=== PATIENT | male | born 1960 | race African-American/Black ===

== ENCOUNTER → 2016-05-09 | Emergency (ER) | payer MEDICARE, OTHER ==
[~2016-05-09] VITALS: Ht 175.3 cm; Wt 108.9 kg
[~2016-05-09] MED LIST: AZITHROMYCIN250 MG ORAL; HYDROCHLOROTH12.5 M2 ORAL; IBUPROFEN600 MG ORAL; JANUMET 50-5001 EACH ORAL; KEFLEX500 MG ORAL
[2016-05-09 23:40] VITALS: BP 130/81
--- NOTE | 2016-05-09 23:56 | Emergency Room Report ---
History of Present Illness General Chief Complaint: Lower Back Pain or Injury Source: Patient Present Illness HPI Is a 55-year-old male with history of chronic pain. He presents with chief complaint of lower back pain. He said that 2 days ago he slipped on a wet ramp and landed on his blood. Complaining of lower back pain. Denies any fever or chills. Pain is localized the lower lumbar area. No loss of consciousness. 10 out of 10. Out of his pain medication. Denies any other complaint. Allergies: Coded Allergies: No Known Allergies (Verified , 05/09/16) Patient History Past Medical History: see triage record, old chart reviewed Past Surgical History: other Pertinent Family History: none Social History: Reports: smoking Immunizations: other Reviewed Nursing Documentation: PMH: Agreed, PSxH: Agreed Nursing Documentation-PM Past Medical History: No History, Except For Hx Hypertension: Yes Hx Asthma: Yes Hx Diabetes: Yes Hx Cancer: No Hx Gastrointestinal Problems: No Hx Neurological Problems: No Review of Systems Eye: Denies: blurred vision, eye pain ENT: Denies: ear pain, nose congestion, throat swelling Respiratory: Denies: cough, shortness of breath Cardiovascular: Denies: chest pain, palpitations Gastrointestinal: Denies: abdominal pain, diarrhea, nausea, vomiting Musculoskeletal: Reports: back pain, Denies: joint pain Skin: Denies: rash Neurological: Denies: headache, numbness Endocrine: Denies: increased thirst, increased urine Hematologic/Lymphatic: Denies: easy bruising All Other Systems: negative except mentioned in HPI Physical Exam Vital Signs Date Time Temp Pulse Resp B/P Pulse Ox O2 Delivery O2 Flow Rate FiO2 05/09/16 23:36 97.5 73 16 122/80 99 Room Air vitals normal Sp02 EP Interpretation: reviewed, normal General Appearance: well appearing, no apparent distress, alert Head: normocephalic, atraumatic Eyes: bilateral eye EOMI, bilateral eye PERRL ENT: hearing grossly normal, normal pharynx Neck: full range of motion, supple, no meningismus Respiratory: chest non-tender, lungs clear, normal breath sounds Cardiovascular #1: regular rate, rhythm, no murmur Gastrointestinal: normal bowel sounds, non tender, no mass, no organomegaly, no bruit, non-distended Musculoskeletal: back normal - Tender to palpation of the lower lumbar area. No step-off. No evidence of any trauma., gait/station normal, normal range of motion Neurologic: alert, oriented x3 Psychiatric: mood/affect normal Skin: warm/dry Medical Decision Making Diagnostic Impression: Primary Impression: Low back pain Qualified Codes: M54.5 - Low back pain Additional Impression: Opioid dependence Qualified Codes: F11.20 - Opioid dependence, uncomplicated ER Course Is presents with lower back pain. X-rays unremarkable. No trauma. On the [employer] system, he gets monthly Phenergan with codeine prescription. He said this is for his asthma. I also get oxycodone 30 mg #240. I have a high suspicion for opioid dependence and drug-seeking behavior. I see no evidence of cauda equina syndrome, spinal after abscess, or neoplastic process. We'll discharge home. He said he has an appointment with his doctor tomorrow. Other X-Ray Diagnostic Results Other X-Ray Diagnostic Results : X-Ray Ordered: xr lumbar Date: May 09, 2016 Time: 23:56 EP Interpretation: Yes Findings: no fractures, no dislocation, no soft tissue swelling Number of Views: 4 Last Vital Signs Date Time Temp Pulse Resp B/P Pulse Ox O2 Delivery O2 Flow Rate FiO2 05/09/16 23:36 97.5 73 16 122/80 99 Room Air Status: improved Disposition: HOME, SELF-CARE Condition: Stable Scripts Ibuprofen* (MOTRIN*) 600 Mg Tablet 600 MG ORAL THREE TIMES A DAY, #30 TAB 0 Refills Prov: NEELIMA MCCRACKEN M.D. 05/09/16 Patient Instructions: Lumbosacral Strain Additional Instructions: Followup with your tomorrow. Return if worse. NEELIMA MCCRACKEN M.D. May 09, 2016 23:56
[2016-05-10 00:22] VITALS: BP 130/81
--- NOTE | 2016-05-10 12:19 | Diagnostic Imaging Report ---
Indication: Back pain Comparison: None Findings: 3 views of the lumbar spine were obtained. Multilevel endplate and facet osteophytes are present. No malalignment identified. No acute fracture definitely seen. Impression: Mild spondylosis. No acute injury appreciated.
== END | disposition home or self-care (01) ==
LOC: EMR 23:52
DX: M54.5 Low back pain (principal); F11.20 Opioid dependence, uncomplicated; I10 Essential (primary) hypertension; E11.9 Type 2 diabetes mellitus without complications; J45.909 Unspecified asthma, uncomplicated; Z87.891 Personal history of nicotine dependence
CPT/HCPCS: 72020; 99283

== ENCOUNTER 2017-08-14 23:12 | Emergency (ER) | payer MEDICARE, OTHER ==
--- NOTE | 2017-08-14 23:55 | Emergency Room Report ---
History of Present Illness General Chief Complaint: To Be Triaged Source: Patient Present Illness HPI This patient has a history of chronic pain and back pain. He is seen pain management already. He checked in saying that he wanted MRI of his back. When the triage nurse told him that he probably will not get an MRI of his back as a routine tests, patient said that he doesn't want it checked in. He left without being triaged. I did not see this patient. Triage nurse told me that patient has appointment with his pain specialist tomorrow. Allergies: Coded Allergies: No Known Allergies (Verified , 05/09/16) Nursing Documentation-[facility] Hx Hypertension: Yes Hx Asthma: Yes Hx Diabetes: Yes Hx Cancer: No Hx Gastrointestinal Problems: No Hx Neurological Problems: No Medical Decision Making Referrals: NON PHYSICIAN (PCP) NEELIMA MCCRACKEN M.D. Aug 14, 2017 23:55
[2017-08-15] MEDS ORDERED: TYLENOL EXTRA500 MG ORAL (21:32)
[2017-08-15] MEDS ORDERED: BACTRIM DS TAB1 EAC1 ORAL (21:32)
== END 2017-08-14 23:36 | disposition left against medical advice (07) ==
LOC: EMR 23:36
DX: M54.9 Dorsalgia, unspecified (principal); G89.29 Other chronic pain; Z53.21 Procedure and treatment not carried out due to patient leaving prior to being seen by health care provider; I10 Essential (primary) hypertension; E11.9 Type 2 diabetes mellitus without complications
CPT/HCPCS: 99283

== ENCOUNTER 2017-08-15 18:50 | Emergency (ER) | payer MEDICARE, OTHER ==
[~2017-08-15] VITALS: Ht 175.3 cm; Wt 113.4 kg
[2017-08-15 19:00] VITALS: BP 108/66
[2017-08-15] MEDS ORDERED: Tetanus/Diptheria/Pertussis Vaccine 0.5ml Syr IM ONE (19:30)
[2017-08-15] MEDS ORDERED: Norco 5mg/325mg tab ORAL ONE (19:30)
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
[2017-08-15] MEDS ORDERED: Bacitracin Oint UD TOPIC ONE (20:45)
[2017-08-15] MEDS ORDERED: BACTRIM DS TAB1 EAC1 ORAL (21:32)
[2017-08-15] MEDS ORDERED: TYLENOL EXTRA500 MG ORAL (21:32)
[2017-08-15 21:40] VITALS: BP 108/66
--- NOTE | 2017-08-16 10:06 | Diagnostic Imaging Report ---
Indication: Headache Technique: Contiguous 5 mm thick transaxial imaging of the head obtained in a Siemens Sensation [address] scanner. Soft tissue and bone windows generated. Automatic Exposure Control was utilized. Total Dose length Product (DLP): 1432.[address] Dose Index Volume (CTDIvol): 70.38 mGy Comparison: 07/24/2014 Findings: The size and configuration of the cortical sulci, basal cisterns, and ventricles are within normal limits for age. There is no mass effect, midline shift, or edema identified. There is no evidence of acute hemorrhage or abnormal intra-axial or extra-axial fluid collections. The bones and soft tissues are unremarkable. Impression: No mass effect, edema or acute bleed. [place] [facility] [place] [employer] and the scans are performed using dose optimization techniques as appropriate to a performed exam including Automatic Exposure control.
--- NOTE | 2017-08-16 10:26 | Diagnostic Imaging Report ---
Indication: Chest pain Comparison: 09/12/2015 A single view chest radiograph was obtained. Findings: Cardiomediastinal appearance is within normal limits for age. Pulmonary vascularity is appropriate. The diaphragmatic contour is smooth and costophrenic angles are sharp. No pleural effusions are identified. The bones are unremarkable. Impression: No acute findings
== END 2017-08-15 21:40 | disposition home or self-care (01) ==
LOC: EDBD 18:50 → EMR 19:14
DX: S01.511A Laceration without foreign body of lip, initial encounter (principal); S20.219A Contusion of unspecified front wall of thorax, initial encounter; E11.9 Type 2 diabetes mellitus without complications; I10 Essential (primary) hypertension; Y04.2XXA Assault by strike against or bumped into by another person, initial encounter; Z23 Encounter for immunization
CPT/HCPCS: 70450; 71045; 90471; 90715; 99284

== ENCOUNTER 2017-08-17 19:35 | Emergency (ER) | payer MEDICARE, OTHER ==
[~2017-08-17] VITALS: Ht 175.3 cm; Wt 77.1 kg
[~2017-08-17 19:35] MED LIST changes: +BACTRIM DS TAB1 EAC1 ORAL; +TYLENOL EXTRA500 MG ORAL
[2017-08-17] MEDS ORDERED: NORCO 5-325 TA1 EACH ORAL (19:50)
--- NOTE | 2017-08-17 21:15 | Emergency Room Report ---
History of Present Illness General Chief Complaint: Wound Recheck/Suture Removal Source: Medical Record Present Illness HPI Patient is a 56-year-old male who presented after recent injury. The patient stated he had a complex lip laceration which was repaired by plastic surgery. The patient was noted to have a scheduled follow-up with plastic surgeon. The patient stated he saw a dentist who noted that he had a possible alveolar fracture. The patient stated he had recent imaging performed which showed this fracture. The patient stated he was having difficulty obtaining follow-up for repair fracture. Allergies: Coded Allergies: No Known Allergies (Verified , 05/09/16) Patient History Past Medical History: see triage record Reviewed Nursing Documentation: PMH: Agreed; PSxH: Agreed Nursing Documentation-PMH Hx Hypertension: Yes Hx Asthma: Yes Hx Diabetes: Yes Hx Cancer: No Hx Gastrointestinal Problems: No Hx Neurological Problems: No Review of Systems All Other Systems: negative except mentioned in HPI Physical Exam Vital Signs Date Time Temp Pulse Resp B/P (MAP) Pulse Ox O2 Delivery O2 Flow Rate FiO2 08/17/17 19:45 93 14 134/79 97 Room Air Sp02 EP Interpretation: reviewed, normal General Appearance: normal inspection, well appearing, no apparent distress, alert, GCS 15 Head: atraumatic ENT: normal ENT inspection, hearing grossly normal, normal voice, other - dental loosening, mild soft tissue swelling, no active bleeding Neck: normal inspection, full range of motion, supple, no bony tend Respiratory: normal inspection, lungs clear, normal breath sounds, no respiratory distress, no retraction, no wheezing Cardiovascular #1: regular rate, rhythm, no edema Gastrointestinal: normal inspection, normal bowel sounds, non tender, soft, no guarding, no hernia Genitourinary: no CVA tenderness Musculoskeletal: normal inspection, back normal, normal range of motion Neurologic: normal inspection, alert, oriented x3, responsive, forms builder III-XII nml as tested, speech normal Psychiatric: normal inspection, judgement/insight normal, mood/affect normal Skin: normal inspection, normal color, no rash Medical Decision Making Diagnostic Impression: Primary Impression: Closed fracture of alveolar process of maxilla ER Course Patient presented for wound check. Differential diagnosis included was not limited to infected wound, nonhealed wound, neuroma, healed wound. Patient has a benign exam and does not appear to require any further imaging or laboratory testing at this time. The patient's wound appears to be healing well in terms of his skin laceration. The patient is advised to follow-up as previous scheduled with plastic surgeon for removal. The patient also requires oral max facial surgery for repair of facial fracture. The patient was advised follow- up with [facility] for facial fracture repair as he stated that he had previously agreed to take care of his fracture if referred. Last Vital Signs Date Time Temp Pulse Resp B/P (MAP) Pulse Ox O2 Delivery O2 Flow Rate FiO2 08/17/17 19:45 93 14 134/79 97 Room Air Status: improved Disposition: HOME, SELF-CARE Condition: Stable Patient Instructions: Wound Check Additional Instructions: Follow up with maxillo facial surgery for repair of alveolar fracture and dental problems at [facility]. Alex Pineda Aug 17, 2017 21:15
[2017-08-17 21:21] VITALS: BP 147/81
[2017-08-17 21:24] VITALS: BP 156/78
[2017-08-18 06:53] VITALS: BP 142/82
== END 2017-08-17 21:25 | disposition home or self-care (01) ==
LOC: EMR 20:30
DX: S01.511D Laceration without foreign body of lip, subsequent encounter (principal); S02.42 Fracture of alveolus of maxilla; X58.XXXD Exposure to other specified factors, subsequent encounter; E11.9 Type 2 diabetes mellitus without complications; J45.909 Unspecified asthma, uncomplicated; I10 Essential (primary) hypertension
CPT/HCPCS: 99281

== ENCOUNTER 2018-10-22 03:03 | Emergency (ER) | payer MEDICARE, OTHER ==
[~2018-10-22] VITALS: Ht 175.3 cm; Wt 113.4 kg
[~2018-10-22 03:03] MED LIST changes: +NORCO 5-325 TA1 EACH ORAL
[2018-10-22] MEDS ORDERED: METFORMIN HCL500 M1 ORAL (03:19)
[2018-10-22] MEDS ORDERED: PROAIR HFA8.5 GM INH (03:19)
--- NOTE | 2018-10-22 03:29 | NUR ---
ED Nurse Note: pt walked in c/o cough and sob x 5 days, pt states he has hx asthma and lost inhaler. noted pt audible wheezing and LS=wheezing on expiratory. vss. will cont monitor. RT contacted.
[2018-10-22 03:30] VITALS: BP 130/91
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
--- NOTE | 2018-10-22 03:39 | NUR ---
ED Nurse Note: [email or web address] [id number], ERMD notified.
[2018-10-22] MEDS ORDERED: Albuterol ud Inhalation HHN ONE (03:45)
[2018-10-22] MEDS ORDERED: Ipratropium 0.02% Inh Soln 2.5ml UD HHN ONE (03:45)
[2018-10-22] MEDS ORDERED: Acetaminophen 500mg (ES) tab ORAL ONE (03:45)
[2018-10-22] MEDS ORDERED: PREDNISONE20 MG ORAL (04:08)
[2018-10-22] MEDS ORDERED: ALBUTEROL SULF8.5 GM INH (04:08)
[2018-10-22] MEDS ORDERED: ZITHROMAX250 MG ORAL (04:08)
--- NOTE | 2018-10-22 04:14 | NUR ---
ED Nurse Note: pt cleared to be d/c per ERMD, pt discharge and aftercare instruction w/ prescription provided, pt reports feeling better after breathing tx, pt education done via discussion and handout, pt advised to follow up with pcp or return to ed if changes in condition, vss, ambulatory w/ steady gait, left w/ all belongings.
[2018-10-22 04:15] VITALS: BP 135/76
== END 2018-10-22 04:16 | disposition home or self-care (01) ==
LOC: EMR 03:26
DX: J06.9 Acute upper respiratory infection, unspecified (principal); J45.21 Mild intermittent asthma with (acute) exacerbation; I10 Essential (primary) hypertension; E11.9 Type 2 diabetes mellitus without complications
CPT/HCPCS: 82962; 94640; 99284

== ENCOUNTER 2019-10-15 18:02 | Emergency (ER) | payer MEDICARE, OTHER ==
[~2019-10-15] VITALS: Ht 177.8 cm; Wt 99.8 kg
[~2019-10-15 18:02] MED LIST changes: +ALBUTEROL SULF8.5 GM INH; +METFORMIN HCL500 M1 ORAL; +PREDNISONE20 MG ORAL; +PROAIR HFA8.5 GM INH; +ZITHROMAX250 MG ORAL
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
[2019-10-15] MEDS ORDERED: Tylenol #3 tab (300mg/30mg) ORAL ONE (19:15)
[2019-10-15] MEDS ORDERED: Methocarbamol 750mg tab ORAL ONE (19:15)
--- NOTE | 2019-10-15 20:13 | Diagnostic Imaging Report ---
History: TRAUMA Exam: CT PELVIS Without Contrast Technique more: CTDI is 15.90 mGy and DLP is 584.40 mGy-cm. Technique more: One or more of the following dose reduction techniques were used: automated exposure control, adjustment of the mA and/or kV according to patient size, use of iterative reconstruction technique. Comparison: FINDINGS: No fracture or dislocation. No pelvic hematoma. Partial osseous fusion of bilateral symmetric appearing SI joints. Pubic symphysis appears within limits. No pelvic free fluid. IMPRESSION: No fracture or dislocation.
--- NOTE | 2019-10-15 20:25 | Emergency Room Report ---
History of Present Illness General Chief Complaint: Lower Extremity Injury Source: Patient Present Illness HPI 59-year-old male with history of hypertension diabetes as well as arthritis chronic pain here complaining of left ankle pain left hip pain and right elbow pain after falling down the stairs earlier today. Patient was wheeled into the ED. Rates the pain 7 out of 10 without radiation. Has not taken medication for symptom relief. Denies any tingling or numbness. Denies head injury or loss of consciousness. Denies all other trauma. Denies chest pain, shortness of breath, palpitation, headache and dizziness at this time. Patient is neurovascularly intact. Allergies: Coded Allergies: No Known Allergies (Verified , 05/09/16) COVID-19 Screening Contact w/high risk pt: No Recent Travel to affected area: No Experienced COVID-19 symptoms?: No COVID-19 Testing performed DIRECTOR OF HOTEL: No Patient History Past Medical History: see triage record Past Surgical History: none Pertinent Family History: none Immunizations: UTD Reviewed Nursing Documentation: PMH: Agreed; PSxH: Agreed Nursing Documentation-PMH Past Medical History: No History, Except For Hx Hypertension: Yes Hx Asthma: Yes Hx Diabetes: Yes Hx Cancer: No Hx Gastrointestinal Problems: No Hx Neurological Problems: No Review of Systems All Other Systems: negative except mentioned in HPI Physical Exam Vital Signs Date Time Temp Pulse Resp B/P (MAP) Pulse Ox O2 Delivery O2 Flow Rate FiO2 10/15/19 18:10 98.8 85 18 135/76 (95) 98 Room Air Sp02 EP Interpretation: reviewed, normal General Appearance: no apparent distress, alert, GCS 15, non-toxic Head: normocephalic, atraumatic Eyes: bilateral eye normal inspection, bilateral eye PERRL ENT: hearing grossly normal, normal pharynx, no angioedema, normal voice Neck: full range of motion, supple/symm/no masses Respiratory: chest non-tender, lungs clear, normal breath sounds, speaking full sentences Cardiovascular #1: regular rate, rhythm, no edema Cardiovascular #2: 2+ radial (R), 2+ radial (L), 2+ femoral (R), 2+ femoral (L) , 2+ dorsalis pedis (R), 2+ dorsalis pedis (L) Gastrointestinal: normal bowel sounds, non tender, soft, non-distended, no guarding, no rebound Genitourinary: no CVA tenderness Musculoskeletal: back normal, no calf tenderness, no lower extremity edema, non -tender, swelling - Left ankle and right elbow swelling Neurologic: alert, motor strength/tone normal, oriented x3, sensory intact, responsive, speech normal Psychiatric: judgement/insight normal, memory normal, mood/affect normal, no suicidal/homicidal ideation Skin: no rash Lymphatic: no adenopathy Procedures Splinting Splinting #1: Consent: Verbal Location: Right elbow Pre-Made Type: ANA wrap Pre-Proc Neuro Vasc Exam: normal Post-Proc Neuro Vasc Exam: normal Patient Tolerated: Well Complications: None Splinting #2: Consent: Verbal Location: Left ankle Pre-Made Type: ANA wrap Pre-Proc Neuro Vasc Exam: normal Post-Proc Neuro Vasc Exam: normal Patient Tolerated: Well Complications: None Progress Arm sling was applied and one crutch was provided per patient's request Medical Decision Making PA Attestation All my diagnosis and treatment plans were reviewed ad discussed with my supervising physician Dr. Cortez Diagnostic Impression: Primary Impression: Olecranon bone spur Additional Impressions: Elbow contusion Ankle sprain Hip sprain ER Course 59-year-old male with history of hypertension diabetes as well as arthritis chronic pain here complaining of left ankle pain left hip pain and right elbow pain after falling down the stairs earlier today. Patient was wheeled into the ED. Rates the pain 7 out of 10 without radiation. Has not taken medication for symptom relief. Denies any tingling or numbness. Denies head injury or loss of consciousness. Denies all other trauma. Denies chest pain, shortness of breath, palpitation, headache and dizziness at this time. Patient is neurovascularly intact. Ddx considered but are not limited to: ankle sprain, ankle strain, ankle fracture, ankle contusion, hip fracture versus sprain versus contusion, elbow contusion versus arthritis versus fracture, Vital signs: are WNL, pt. is afebrile H&PE are most consistent with: Elbow arthritis and sprain as well as contusion , hip contusion and sprain, ankle sprain ORDERS: ankle x-ray, elbow x-ray, left hip and pelvis CT ED INTERVENTIONS: Robaxin, Tylenol 3, Toradol DISCHARGE: At this time pt. is stable for d/c to home. Will provide printed patient care instructions, and any necessary prescriptions. Care plan and follow up instructions have been discussed with the patient prior to discharge. Patient to follow-up with document processing specialist, take medication as directed, if worsening symptoms return to the emergency room Other X-Ray Diagnostic Results Other X-Ray Diagnostic Results #1: X-Ray ordered: Left ankle # of Views/Limited Vs Complete: 3 View Indication: Pain EP Interpretation: Yes PA Xray: Interpretation reviewed, by supervising MD, and agrees with findings. Interpretation: no dislocation, no soft tissue swelling, no fractures Impression: No acute disease Electronically Signed by: Itzel Tamez PA-C Other X-Ray Diagnostic Results #2: X-Ray ordered: Right elbow # of Views/Limited Vs Complete: 3 View Indication: Pain EP Interpretation: Yes PA Xray: Interpretation reviewed, by supervising MD, and agrees with findings. Interpretation: no dislocation, no soft tissue swelling, no fractures Impression: No acute disease Electronically Signed by: Itzel Tamez PA-C CT/MRI/US Diagnostic Results CT/MRI/US Diagnostic Results : Imaging Test Ordered: CT pelvis no contrast Impression No fracture noted Last Vital Signs Date Time Temp Pulse Resp B/P (MAP) Pulse Ox O2 Delivery O2 Flow Rate FiO2 10/15/19 18:10 98.8 85 18 135/76 (95) 98 Room Air Disposition: HOME, SELF-CARE Condition: Stable Scripts Lidocaine Patch* (Lidoderm Patch*) 1 Each Adh..patch 1 PATCH TOPIC DAILY, #30 PATCH Patch(es) may remain in place for up to 12 hours in any 24-hour period. Prov: Itzel Joe 10/15/19 Ibuprofen* (MOTRIN*) 600 Mg Tablet 600 MG ORAL Q8H PRN for FOR PAIN, #30 TAB 0 Refills Prov: Itzel Joe 10/15/19 Methocarbamol* (ROBAXIN-500*) 500 Mg Tablet 500 MG ORAL TID PRN for For Pain, #15 TAB 0 Refills Prov: Itzel Joe 10/15/19 Referrals: [facility],REFERRING (PCP) Patient Instructions: Ankle Sprain, Arthritis, [id number], Contusion, Easy-to -Read Additional Instructions: take medication as directed, follow with document processing specialist, if worsening symptoms return to the emergency room. Itzel Joe Oct 15, 2019 20:25
[2019-10-15] MEDS ORDERED: ROBAXIN-500MG ORAL (20:29)
[2019-10-15] MEDS ORDERED: IBUPROFEN600 M1 ORAL (20:29)
[2019-10-15] MEDS ORDERED: LIDODERM700 M1 TOPIC (20:29)
--- NOTE | 2019-10-15 20:30 | NUR ---
ED Nurse Note: Pt R elbow and L ankle brandon bandaged and R arm placed in sling. Pt provided with crutches and instructed how to use them.
[2019-10-15 20:40] VITALS: BP 128/80
--- NOTE | 2019-10-15 20:40 | NUR ---
ER DISCHARGE NOTE: Patient is cleared to be discharged per ERMD, pt is aox4, on room air, with stable vital signs. pt was given dc and prescription instructions, pt was able to verbalize understanding, pt id band removed. pt is able to ambulate with steady gait with crutches. pt took all belongings.
--- NOTE | 2019-10-16 09:54 | Diagnostic Imaging Report ---
Indication: Pain, trauma Technique: 3 views of the left ankle Comparison: none Findings: No acute fractures. No dislocations. The joint spaces are preserved. There is a small plantar spur Impression: Negative
--- NOTE | 2019-10-16 11:14 | Diagnostic Imaging Report ---
Indications:Pain, trauma Technique: Three or 4 views of the right elbow Comparison: None Findings: No acute fractures. No dislocations. Small olecranon spur noted. The joint spaces are preserved Impression: Negative
== END 2019-10-15 20:40 | disposition home or self-care (01) ==
LOC: EMR 19:05
DX: M77.8 Other enthesopathies, not elsewhere classified (principal); S50.01XA Contusion of right elbow, initial encounter; S93.402A Sprain of unspecified ligament of left ankle, initial encounter; S73.102A Unspecified sprain of left hip, initial encounter; I10 Essential (primary) hypertension; E11.9 Type 2 diabetes mellitus without complications; W10.9XXA Fall (on) (from) unspecified stairs and steps, initial encounter; Y92.9 Unspecified place or not applicable
CPT/HCPCS: 72192; 99284